=== PATIENT | female | born 1995 | race Hispanic/Latino ===

== ENCOUNTER 2018-03-21 17:13 | Inpatient (IN) | payer MEDICAID, OTHER ==
[2018-03-21 17:21] VITALS: BMI 32.1
[2018-03-21] MEDS ORDERED: Sodium Chloride 0.9% 1,000 ML IV STA (18:05)
--- NOTE | 2018-03-21 18:13 | ED PDOC ---
Arrival/HPI - General Chief Complaint: Back Pain Time Seen by Provider: 03/21/18 17:38 Historian: Patient - History of Present Illness Narrative History of Present Illness (Text): 03/21/18 18:11 This 22 yo female who denies pmh, presents to this ED c/o right flank and lower back pain x 2 days. Patient stated she was seen at [facility] ED 2 days ago[address] Patient [address] CT scan, labs, and UA were normal. Patient stated she continued with pain, and associated with fever. Patient admits dysuria, but she denies vaginal discharge. Past Medical History - Provider Review Nursing Documentation Reviewed: Yes - Infectious Disease Hx of Infectious Diseases: None - Psychiatric Hx Depression: No Hx Emotional Abuse: No Hx Physical Abuse: No Hx Substance Use: No - Surgical History Hx Tonsillectomy: Yes Other/Comment: breast reduction - Anesthesia Hx Anesthesia: Yes Hx Anesthesia Reactions: No Hx Malignant Hyperthermia: No - Suicidal Assessment Feels Threatened In Home Enviroment: No Family/Social History - Physician Review Nursing Documentation Reviewed: Yes Family/Social History: Other (noncontributory) Smoking Status: Never Smoked Hx Alcohol Use: Yes Frequency of alcohol use: Socially Hx Substance Use: No Hx Substance Use Treatment: No Allergies/Home Meds Allergies/Adverse Reactions: Allergies No Known Allergies Allergy (Verified 04/03/12 15:57) Home Medications: Home Meds Medication Instructions Recorded Confirmed No Known Home Med 04/03/12 03/21/18 Review of Systems - Review of Systems Constitutional: Normal. absent: Fatigue, Weight Change, Fevers Eyes: Normal ENT: Normal Respiratory: Normal Cardiovascular: Normal Gastrointestinal: Abdominal Pain, Nausea. absent: Constipation, Diarrhea Genitourinary Female: Dysuria. absent: Frequency, Hematuria Musculoskeletal: Normal Skin: Normal Neurological: Normal Endocrine: Normal Hemo/Lymphatic: Normal Psychiatric: Normal Physical Exam Vital Signs Temp Pulse Resp BP Pulse Ox 03/21/18 18:30 105 H 18 110/77 99 03/21/18 17:22 99.8 F H 111 H 18 129/82 98 Temperature: Febrile Blood Pressure: Normal Pulse: Tachycardic Respiratory Rate: Normal Appearance: Positive for: Well-Appearing, Non-Toxic, Comfortable Pain Distress: None Mental Status: Positive for: Alert and Oriented X 3 - Systems Exam Head: Present: Atraumatic, Normocephalic Pupils: Present: PERRL Extroacular Muscles: Present: EOMI Conjunctiva: Present: Normal Mouth: Present: Moist Mucous Membranes Neck: Present: Normal Range of Motion Respiratory/Chest: Present: Clear to Auscultation, Good Air Exchange. No: Respiratory Distress, Accessory Muscle Use Cardiovascular: Present: Regular Rate and Rhythm, Normal S1, S2. No: Murmurs Abdomen: Present: Tenderness. No: Distention, Peritoneal Signs, Rebound, Guarding Back: Present: Normal Inspection, CVA Tenderness (mild right sided). No: Paraspinal Tenderness, Pain with Leg Raise Upper Extremity: Present: Normal Inspection, Normal ROM. No: Cyanosis, Edema Lower Extremity: Present: Normal Inspection, Normal ROM. No: Edema Neurological: Present: GCS=15, CN II-XII Intact, Speech Normal, Motor Func Grossly Intact, Normal Sensory Function, Normal Cerebellar Funct, Gait Normal Skin: Present: Warm, Dry, Normal Color. No: Rashes Psychiatric: Present: Alert, Oriented x 3, Normal Insight, Normal Concentration Medical Decision Making ED Course and Treatment: 03/21/18 23:24 I recommended patient to be admitted for observation. Patient agreed, and she requested to have Dr. Wall to take care of her admission. Re-evaluation Time: 23:25 Reassessment Condition: Re-examined, Improving,but remains with symptoms - Lab Interpretations Lab Results: 03/21/18 18:19 03/21/18 18:19 Lab Results 03/21/18 19:30: Urine Color Straw, Urine Appearance Slight-cloudy, Urine pH 6.0 , Ur Specific Ione 1.010, Urine Protein 30 H, Urine Glucose (UA) Negative, Urine Ketones Negative, Urine Blood Large H, Urine Nitrate Negative, Urine Bilirubin Negative, Urine Urobilinogen 0.2, Ur Leukocyte Esterase Large H, Urine RBC 25 - 30, Urine WBC 10 - 15, Ur Epithelial Cells Many, Urine Bacteria Trace, Urine HCG, Qual Negative 03/21/18 18:19: Sodium 136, Potassium 3.7, Chloride 101, Carbon Dioxide 24, Anion Gap 15, BUN 13, Creatinine 1.1, Est GFR ( Amer) > 60, Est GFR (Non- Af Amer) > 60, Random Glucose 105, Calcium 9.2, Total Bilirubin 0.8, AST 29, ALT 21, Alkaline Phosphatase 80, Total Protein 7.7, Albumin 4.1, Globulin 3.7, Albumin/Globulin Ratio 1.1 03/21/18 18:19: WBC 15.5 H, RBC 4.14, Hgb 11.0 L, Hct 34.5 L, MCV 83.3, MCH 26.6 , MCHC 31.9, RDW 15.1 H, Plt Count 251, MPV 8.3, Gran % 68.2 H, Lymph % (Auto) 16.9 L, Stearns % (Auto) 14.7 H, Eos % (Auto) 0.1 L, Baso % (Auto) 0.1, Gran # 10.55 H, Lymph # (Auto) 2.6, Stearns # (Auto) 2.3 H, Eos # (Auto) 0.0, Baso # (Auto ) 0.01 I have reviewed the lab results: Yes Interpretation: Abnormal lab values - RAD Interpretation Radiology Orders: 03/21/18 18:07 CHEST PORTABLE [RAD] Stat 03/21/18 18:43 ABD & PELVIS IV CONTRAST ONLY [CT] Stat - Medication Orders Current Medication Orders: Discontinued Medications Acetaminophen (Tylenol 325mg Tab) 975 mg PO STAT STA Stop: 03/21/18 18:11 Last Admin: 03/21/18 18:48 Dose: 975 mg MAR Pain/Vitals Document 03/21/18 18:48 CARLY (Rec: 03/21/18 18:48 CARLY JOEL-PC) Pain Reassessment Is This A Pain ReAssessment? No Sleep Is patient sleeping during reassessment? No Presence of Pain Presence of Pain Yes Sodium Chloride (Sodium Chloride 0.9%) 1,000 mls @ 999 mls/hr IV .Q1H1M STA Stop: 03/21/18 19:05 Last Admin: 03/21/18 18:47 Dose: 999 mls/hr eMAR Start Stop Document 03/21/18 18:47 CARLY (Rec: 03/21/18 18:48 CARLY JOEL-PC) Intravenous Solution Start Date 03/21/18 Start Time 18:30 End Date 03/21/18 End time 19:30 Total Infusion Time 60 Ceftriaxone Sodium (Rocephin 1 Gram Ivpb) 1 gm in 100 mls @ 200 mls/hr IVPB STAT STA PRN Reason: Protocol Stop: 03/21/18 19:20 Last Admin: 03/21/18 19:36 Dose: 200 mls/hr eMAR Start Stop Document 03/21/18 19:36 AD (Rec: 03/21/18 19:37 AD [id number]) Intravenous Solution Start Date 03/21/18 Start Time 19:37 Ondansetron HCl (Zofran Inj) 4 mg IVP STAT STA Stop: 03/21/18 18:48 Last Admin: 03/21/18 18:50 Dose: 4 mg IVP Administration Document 03/21/18 18:50 CARLY (Rec: 03/21/18 18:50 CARLY [id number]) Charges for Administration # of IVP Administrations 1 Disposition/Present on Arrival - Present on Arrival Any Indicators Present on Arrival: No History of DVT/PE: No History of Uncontrolled Diabetes: No Urinary Catheter: No History of Decub. Ulcer: No History Surgical Site Infection Following: None - Disposition Have Diagnosis and Disposition been Completed?: Yes Diagnosis: Pyelonephritis Disposition: HOSPITALIZED Disposition Time: 23:26 Patient Plan: Admission Condition: STABLE Referrals: Kerri Sparks DO [Primary Care Provider] - Follow up with primary Forms: [employer] (Azeri)
[2018-03-21 18:36] LABS: BASO # 0.01 K/mm3 (0.0-2.0); BASO % 0.1 % (0.0-3.0); EOS % 0.1 % (1.5-5.0); GRAN # 10.55 (1.4-6.5); GRAN % 68.2 % (50.0-68.0); LYMPH # 2.6 (1.2-3.4); LYMPH % 16.9 % (22.0-35.0); MEAN CELL VOLUME 83.3 fl (80.0-105.0); MEAN CORPUSCULAR HEMOGLOBIN 26.6 pg (25.0-35.0); MEAN CORPUSCULAR HGB CONC 31.9 g/dl (31.0-37.0); MEAN PLATELET VOLUME 8.3 fl (7.0-11.0); MONO # 2.3 (0.1-0.6); MONO % 14.7 % (1.0-6.0); RBC 4.14 10^6/uL (3.5-6.1); RED CELL DISTRIBUTION WIDTH 15.1 % (11.5-14.5); WHITE BLOOD COUNT 15.5 10^3/ul (4.5-11.0)
[2018-03-21 18:51] LABS: ALB/GLOB RATIO 1.1 (1.1-1.8); ALBUMIN 4.1 g/dL (3.0-4.8); ALT/SGPT 21 U/L (7-56); AST/SGOT 29 U/L (14-36); BLOOD UREA NITROGEN 13 mg/dL (7-21); CALCIUM 9.2 mg/dL (8.4-10.5); GFR AFRICAN-AMERICAN > 60; GFR NON-AFRICAN AMERICAN > 60
[2018-03-21] MEDS ORDERED: cefTRIAXone 1 gm 1 GM/100 ML BAG IVPB STA (18:51)
[2018-03-21] MEDS ORDERED: Iohexol 350 MG/100 ML VIAL ONE (20:29)
[2018-03-21 23:11] LABS: URINE APPEARANCE SLIGHT-CLOUDY (CLEAR); URINE BILIRUBIN NEGATIVE (NEGATIVE); URINE COLOR STRAW (YELLOW); URINE GLUCOSE (UA) NEGATIVE (NEGATIVE)
[2018-03-21 23:12] LABS: HCG,QUALITATIVE URINE NEGATIVE (NEGATIVE); URINE BLOOD LARGE (NEGATIVE); URINE LEUKOCYTE ESTERASE LARGE Leu/uL (NEGATIVE); URINE PROTEIN 30 mg/dL (<30 mg/dL); URINE UROBILINOGEN 0.2 E.U./dL (<1 E.U./dL)
[2018-03-21 23:13] LABS: URINE BACTERIA TRACE (NEG); URINE EPITHELIAL CELLS MANY /hpf (0-5); URINE RBC 25 - 30 /hpf (0-2)
[2018-03-21] MEDS: Sodium Chloride 0.9% 1,000 ML IV SCH (23:45)
[2018-03-22] MEDS ORDERED: TraMADol/Apap 37.5/325 mg Tab PO STA (01:36)
--- NOTE | 2018-03-22 09:15 | RAD ---
HISTORY: cough COMPARISON: No prior. FINDINGS: LUNGS: No active pulmonary disease. PLEURA: No significant pleural effusion identified, no pneumothorax apparent. CARDIOVASCULAR: Normal. OSSEOUS STRUCTURES: No significant abnormalities. VISUALIZED UPPER ABDOMEN: Normal. OTHER FINDINGS: None. IMPRESSION: No active disease.
[2018-03-22] MEDS: Sodium Chloride 0.9% 1,000 ML IV SCH (09:22)
[2018-03-22] MEDS: cefTRIAXone 1 gm 1 GM/100 ML BAG IVPB SCH (09:27)
[2018-03-22] MEDS: HYDROmorphone 0.5 mg/0.5 ml ISec IVP PRN (09:41)
--- NOTE | 2018-03-22 13:08 | CT ---
PROCEDURE: CT Abdomen and Pelvis with contrast HISTORY: Right flank pain r/o Pyelo COMPARISON: None. TECHNIQUE: Contrast dose: 100 cc of Omni 350 Radiation dose: Total exam DLP = 489 mGy-cm. This CT exam was performed using one or more of the following dose reduction techniques: Automated exposure control, adjustment of the mA and/or kV according to patient size, and/or use of iterative reconstruction technique. FINDINGS: LOWER THORAX: Unremarkable. LIVER: Unremarkable. No gross lesion or ductal dilatation. GALLBLADDER AND BILE DUCTS: Unremarkable. PANCREAS: Unremarkable. No gross lesion or ductal dilatation. SPLEEN: Unremarkable. ADRENALS: Unremarkable. No mass. KIDNEYS AND URETERS: There is patchy edema within the right kidney as well as minimal perinephric stranding consistent with pyelonephritis. There is a 7 mm nonobstructing stone in the lower pole of the right kidney. The left kidney is unremarkable VASCULATURE: Unremarkable. No aortic aneurysm. BOWEL: Unremarkable. No obstruction. No gross mural thickening. APPENDIX: Normal appendix. PERITONEUM: Unremarkable. No free fluid. No free air. LYMPH NODES: Unremarkable. No enlarged lymph nodes. BLADDER: Unremarkable. REPRODUCTIVE: Bilateral ovarian cysts are seen. There is a moderate amount of fluid in the cul-de-sac consistent with recent cyst rupture BONES: No acute fracture. OTHER FINDINGS: None. IMPRESSION: There is patchy edema within the right kidney as well as minimal perinephric stranding consistent with pyelonephritis. There is a 7 mm nonobstructing stone in the lower pole of the right kidney. Bilateral ovarian cysts are seen. There is a moderate amount of fluid in the cul-de-sac consistent with recent cyst rupture
--- NOTE | 2018-03-22 17:38 | CP.PCM.CON ---
History of Present Illness - History of Present Illness History of Present Illness: Infectious Disease Consultation: March 22, 2018 22 yo female with no previous PMHx presenting with 2 day history of right flank pain and lower back pain. The patient was seen in [facility] ED 2 at that time. The patient complains of dysuria, fever, and right flank pain. A CT scan done shows signs of pyelonephritis. Patient was started on Ceftriaxone for antibiotic treatment. PMHx: none given PSHx: none given Allergies: NKDA Social Hx: No tobacco or illicit drug use. Social EtOH use. Active Medications Acetaminophen (Tylenol 325mg Tab) 650 mg PO Q4H PRN PRN Reason: Fever >100.5 F Last Admin: 03/22/18 03:30 Dose: 650 mg Famotidine (Pepcid) 40 mg PO HS RAMEZ Hydromorphone HCl (Dilaudid) 0.5 mg IVP Q4H PRN PRN Reason: Pain, Mild (1-3) Last Admin: 03/22/18 09:41 Dose: 0.5 mg Sodium Chloride (Sodium Chloride 0.9%) 1,000 mls @ 100 mls/hr IV .Q10H RAMEZ Last Admin: 03/22/18 09:22 Dose: 100 mls/hr Ceftriaxone Sodium (Rocephin 1 Gram Ivpb) 1 gm in 100 mls @ 100 mls/hr IVPB DAILY RAMEZ PRN Reason: Protocol Last Admin: 03/22/18 09:27 Dose: 100 mls/hr Ondansetron HCl (Zofran Inj) 4 mg IVP Q4H PRN PRN Reason: Nausea/Vomiting Family Hx: none given ROS: fevers, chills, abdominal pain, right flank pain, weakness No chest pain, melena, hematuria, hematemesis, hematochezia, depression, anxiety , diarrhea, vision loss, hearing loss, dizziness, vomiting, nausea, loss of consciousness. Past Patient History - Infectious Disease Hx of Infectious Diseases: None - Past Social History Smoking Status: Never Smoked - MUSCULOSKELETAL/RHEUMATOLOGICAL Hx Falls: No - PSYCHIATRIC Hx Depression: No Hx Emotional Abuse: No Hx Physical Abuse: No Hx Substance Use: No - SURGICAL HISTORY Other/Comment: Breast reduction. Tonsilectomy - ANESTHESIA Hx Anesthesia: Yes Hx Anesthesia Reactions: No Hx Malignant Hyperthermia: No Meds Allergies/Adverse Reactions: Allergies Allergy/AdvReac Type Severity Reaction Status Date / Time No Known Allergies Allergy Verified 04/03/12 15:57 - Medications Medications: Current Medications Acetaminophen (Tylenol 325mg Tab) 650 mg PO Q4H PRN PRN Reason: Fever >100.5 F Last Admin: 03/22/18 03:30 Dose: 650 mg Famotidine (Pepcid) 40 mg PO HS RAMEZ Hydromorphone HCl (Dilaudid) 0.5 mg IVP Q4H PRN PRN Reason: Pain, Mild (1-3) Last Admin: 03/22/18 09:41 Dose: 0.5 mg Sodium Chloride (Sodium Chloride 0.9%) 1,000 mls @ 100 mls/hr IV .Q10H RAMEZ Last Admin: 03/22/18 09:22 Dose: 100 mls/hr Ceftriaxone Sodium (Rocephin 1 Gram Ivpb) 1 gm in 100 mls @ 100 mls/hr IVPB DAILY RAMEZ PRN Reason: Protocol Last Admin: 03/22/18 09:27 Dose: 100 mls/hr Ondansetron HCl (Zofran Inj) 4 mg IVP Q4H PRN PRN Reason: Nausea/Vomiting Physical Exam - Constitutional Appears: Non-toxic, No Acute Distress - Head Exam Head Exam: ATRAUMATIC, NORMOCEPHALIC - Eye Exam Eye Exam: EOMI, PERRL Pupil Exam: NORMAL ACCOMODATION, PERRL - ENT Exam ENT Exam: Mucous Membranes Moist, Normal External Ear Exam, TM's Normal Bilaterally - Neck Exam Neck exam: Positive for: Full Rom, Normal Inspection - Respiratory Exam Respiratory Exam: Clear to Auscultation Bilateral, NORMAL BREATHING PATTERN. absent: Rales, Rhonchi, Wheezes - Cardiovascular Exam Cardiovascular Exam: REGULAR RHYTHM, RRR, +S1, +S2 - GI/Abdominal Exam GI & Abdominal Exam: Normal Bowel Sounds, Soft, Tenderness. absent: Distended Additional comments: right flank pain and tenderness. - Extremities Exam Extremities exam: Positive for: full ROM, normal inspection - Neurological Exam Neurological exam: Alert, CN II-XII Intact, Oriented x3 - Psychiatric Exam Psychiatric exam: Normal Affect, Normal Mood - Skin Skin Exam: Intact, Normal Color Results - Vital Signs Recent Vital Signs: Last Vital Signs Temp 97.9 F 03/22/18 14:00 Pulse 95 H 04/25/18 14:00 Resp 20 03/22/18 14:00 BP 128/86 03/22/18 14:00 Pulse Ox 98 03/22/18 14:00 - Labs Result Diagrams: 03/21/18 18:19 03/21/18 18:19 Assessment & Plan - Assessment and Plan (Free Text) Assessment: 22 yo female with 2 day history of right flank and abdominal pain with fevers at home. CT shows signs of right sided pyelonephritis. Started on Rocephin which is a good starting point. Cultures taken for analysis. Results pending. Supportive care. No other medical history at this time. Thank you for allowing me to participate in the care of the patient, we will follow with you.
--- NOTE | 2018-03-22 22:16 | CP.PCM.PN ---
Subjective - Date & Time of Evaluation Date of Evaluation: 03/22/18 Time of Evaluation: 22:13 - Subjective Subjective: S:Patient was seen at bedside. She had requested a sleeping pill stating that she was not able to sleep night before. Has no other complaints now. Pertinent medical record was reviewed. O: Last Vital Signs 3 Temp 97.9 F 03/22/18 14:00 Pulse 95 H 03/22/18 14:00 Resp 20 03/22/18 14:00 BP 128/86 03/22/18 14:00 Pulse Ox 98 03/22/18 14:00 Awake, alert, not in distress. Obese person. LUNGS: Normal breathing pattern. NEURO: Speech normal. A:Adjustment Insomnia/ P:Benadryl 25 mg PO X 1. Objective - Vital Signs/Intake and Output Vital Signs (last 24 hours): Temp Pulse Resp BP Pulse Ox 97.9 F 95 H 20 128/86 98 03/22/18 14:00 03/22/18 14:00 03/22/18 14:00 03/22/18 14:00 03/22/18 14:00 Intake and Output: 03/22/18 03/23/18 18:59 06:59 Intake Total 1640 Balance 1640 - Medications Medications: Current Medications Acetaminophen (Tylenol 325mg Tab) 650 mg PO Q4H PRN PRN Reason: Other Last Admin: 03/22/18 18:25 Dose: 650 mg Diphenhydramine HCl (Benadryl) 25 mg PO STAT STA Stop: 03/22/18 22:13 Famotidine (Pepcid) 40 mg PO HS RAMEZ Hydromorphone HCl (Dilaudid) 0.5 mg IVP Q4H PRN PRN Reason: Pain, Mild (1-3) Last Admin: 03/22/18 09:41 Dose: 0.5 mg Sodium Chloride (Sodium Chloride 0.9%) 1,000 mls @ 100 mls/hr IV .Q10H RAMEZ Last Admin: 03/22/18 09:22 Dose: 100 mls/hr Ceftriaxone Sodium (Rocephin 1 Gram Ivpb) 1 gm in 100 mls @ 100 mls/hr IVPB DAILY RAMEZ PRN Reason: Protocol Last Admin: 03/22/18 09:27 Dose: 100 mls/hr Ondansetron HCl (Zofran Inj) 4 mg IVP Q4H PRN PRN Reason: Nausea/Vomiting
[2018-03-23 09:57] LABS: IRON 37 ug/dL (45-180)
[2018-03-23 10:06] LABS: % IRON SATURATION 12 % (20-55); TOTAL IRON BINDING CAPACITY 300 ug/dL (265-497)
[2018-03-23] MEDS: Sodium Chloride 0.9% 1,000 ML IV SCH (10:52)
[2018-03-23] MEDS: Enoxaparin 40 mg Syringe SC SCH (10:59)
[2018-03-23] MEDS: cefTRIAXone 1 gm 1 GM/100 ML BAG IVPB SCH (11:00)
[2018-03-23] MEDS: HYDROmorphone 0.5 mg/0.5 ml ISec IVP PRN ×2 (11:49→22:28)
[2018-03-23 18:59] LABS: FOLATE 13.8 ng/mL
--- NOTE | 2018-03-23 20:05 | HP ---
DATE OF EXAM: 03/22/2018 CHIEF COMPLAINT: Back pain, right flank pain. HISTORY OF PRESENT ILLNESS: Ms. Sami Santos is a 22-year-old female with past medical history of kidney stones at childhood, came to the Emergency Department complaining of right flank pain and lower back pain from 2 days. Patient stated that she was seen in [facility] ED 2 days ago. The patient stated the CAT scan and labs was normal. Patient stated that she continued with pain and associated with fever. Patient has dysuria and she denies any vaginal discharge. No feeling of headache and dizziness. Also, we admitted the patient and called Urology and Infectious Disease consult, started IV antibiotics, Rocephin. Patient was seen and examined at the bedside on 03/22/2018. PAST MEDICAL HISTORY: Kidney stones in the childhood, tonsillectomy, breast reduction. FAMILY HISTORY: Father and mother noncontributory. HABITS: Never smoked. Alcohol, yes, socially. Substance abuse. ALLERGIES: PATIENT IS NOT ALLERGIC TO ANY MEDICATIONS. HOME MEDICATIONS: Denied. REVIEW OF SYSTEMS: Patient was seen and examined at the bedside. Boyfriend was standing on the bedside also. Still having right flank pain. No fatigue, weight change, but having feverous feeling, having nauseous. No constipation or diarrhea, complaining about dysuria, but no hematuria, sometimes feeling headache, dizziness also. PHYSICAL EXAMINATION: VITAL SIGNS: Temperature 99.8, pulse 111, respiratory rate 18, blood pressure 129/80, pulse oximetry 98. HEENT: Head: Normocephalic, atraumatic. Eyes: PERRLA. Extraocular movements intact. Conjunctivae clear. Nose: Patent. Mucous membrane moist. NECK: Supple, no carotid bruit. No JVD or thyromegaly. CHEST: Bilaterally symmetrical. HEART: S1 and S2 positive. LUNGS: Clear to auscultation. ABDOMEN: Soft, bowel sounds positive. No organomegaly. EXTREMITIES: No edema, no cyanosis. NEUROLOGICAL: Patient is awake, alert. Moving all 4 extremities. No focal deficits. LABORATORY DATA: White blood cells 15.5, hemoglobin 11, hematocrit 34.5, and platelets 251. Sodium 138, potassium 3.7, BUN 13, creatinine 1.1, glucose 105. ASSESSMENT AND PLAN: Ms. Sami Santos is a 22-year-old lady with leukocytosis, anemia, history of nephrolithiasis and history of tonsillectomy, was seen at [facility] 2 days ago, came with right flank pain, came to know patient has pyelonephritis, antibiotics was restarted, IV, and Urology consult called. Patient was seen by Dr. Brady. For insomnia, Ambien was given. CAT scan of the abdomen and pelvis done. There is a patchy edema within the right kidney as well as minimal perinephric stranding consistent with pyelonephritis. There is a 7-mm non-obstructing stone in the lower pole of the right kidney. Bladder and ovarian cyst are seen. There is a moderate amount of fluid in the cul-de-sac with recent cystic rupture. PLAN: Continue antibiotics, waiting for urologist's input. Appreciating Dr. Bob's input. Continue Dilaudid for pain. Pepcid for GI prophylaxis. Patient is getting NS, Tylenol, and tramadol. Zofran for nauseousness. We will start Lovenox for DVT prophylaxis. Repeat labs. We will follow up. Shannan Wall MD [facility]
--- NOTE | 2018-03-23 22:28 | CP.PCM.PN ---
Subjective - Date & Time of Evaluation Date of Evaluation: 03/23/18 Time of Evaluation: 22:00 - Subjective Subjective: Infectious Disease Follow Up: March 23, 2018 22 yo female with no previous PMHx presenting with 2 day history of right flank pain and lower back pain. The patient was seen in [facility] ED 2 at that time. The patient complains of dysuria, fever, and right flank pain. A CT scan done shows signs of pyelonephritis. Patient was started on Ceftriaxone for antibiotic treatment. Urine cultures showing gram negative rods. Awaiting full identification and sensitivity. Objective - Vital Signs/Intake and Output Vital Signs (last 24 hours): Temp Pulse Resp BP Pulse Ox 98.1 F 54 L 18 115/74 100 03/23/18 14:00 03/23/18 14:00 03/23/18 14:00 03/23/18 14:00 03/23/18 14:00 Intake and Output: 03/23/18 03/24/18 18:59 06:59 Intake Total 760 780 Balance 760 780 - Medications Medications: Current Medications Acetaminophen (Tylenol 325mg Tab) 650 mg PO Q4H PRN PRN Reason: Other Last Admin: 03/23/18 21:38 Dose: 650 mg Enoxaparin Sodium (Lovenox) 40 mg SC DAILY RAMEZ PRN Reason: Protocol Last Admin: 03/23/18 10:59 Dose: 40 mg Famotidine (Pepcid) 40 mg PO HS [facility] Last Admin: 03/23/18 21:39 Dose: 40 mg Hydromorphone HCl (Dilaudid) 0.5 mg IVP Q4H PRN PRN Reason: Pain, Mild (1-3) Last Admin: 03/23/18 11:49 Dose: 0.5 mg Sodium Chloride (Sodium Chloride 0.9%) 1,000 mls @ 100 mls/hr IV .Q10H [facility] Last Admin: 03/23/18 10:52 Dose: 100 mls/hr Ceftriaxone Sodium (Rocephin 1 Gram Ivpb) 1 gm in 100 mls @ 100 mls/hr IVPB DAILY RAMEZ PRN Reason: Protocol Last Admin: 03/23/18 11:00 Dose: 100 mls/hr Ondansetron HCl (Zofran Inj) 4 mg IVP Q4H PRN PRN Reason: Nausea/Vomiting - Constitutional Appears: Non-toxic, No Acute Distress - Head Exam Head Exam: ATRAUMATIC, NORMOCEPHALIC - Eye Exam Eye Exam: EOMI, PERRL Pupil Exam: NORMAL ACCOMODATION, PERRL - ENT Exam ENT Exam: Mucous Membranes Moist, Normal External Ear Exam, TM's Normal Bilaterally - Neck Exam Neck Exam: Full ROM, Normal Inspection - Respiratory Exam Respiratory Exam: Clear to Ausculation Bilateral, NORMAL BREATHING PATTERN. absent: Rales, Rhonchi, Wheezes - Cardiovascular Exam Cardiovascular Exam: REGULAR RHYTHM, RRR, +S1, +S2 - GI/Abdominal Exam GI & Abdominal Exam: Soft, Tenderness, Normal Bowel Sounds. absent: Distended Additional comments: right flank pain and tenderness. - Extremities Exam Extremities Exam: Full ROM, Normal Inspection - Neurological Exam Neurological Exam: Alert, Awake, CN II-XII Intact, Oriented x3 - Psychiatric Exam Psychiatric exam: Normal Affect, Normal Mood - Skin Skin Exam: Intact, Normal Color Assessment and Plan - Assessment and Plan (Free Text) Assessment: 22 yo female with 2 day history of right flank and abdominal pain with fevers at home. CT shows signs of right sided pyelonephritis. Started on Rocephin which is a good starting point. Cultures taken for analysis. Results pending. Supportive care. UTI. Cultures showing gram negative rods so far. Afebrile today. Right flank pain improving. No other medical history at this time. Thank you for allowing me to participate in the care of the patient, we will follow with you.
--- NOTE | 2018-03-24 05:21 | PN ---
DATE: 03/23/2018 The patient is a 22-year-old female. SUBJECTIVE: The patient was seen and examined at the bedside, on . Boyfriend was on the bedside also. The patient is still complaining of dysuria, but getting better. No fever. No chills. Right flank pain is getting better. CAT scan shows signs of pyelonephritis. No nausea or vomiting. No headache. No dizziness. PHYSICAL EXAMINATION: VITAL SIGNS: Temperature 98.1, pulse 54, respiratory rate 18, blood pressure 115/74, pulse oximetry 100%. HEENT: Head, normocephalic and atraumatic. Eyes, PERRLA. Extraocular movements intact. Conjunctivae clear. Nose: Patent. NECK: Supple. No carotid bruit. No JVD or thyromegaly. CHEST: Bilaterally symmetrical. HEART: S1, S2 positive. LUNGS: Clear to auscultation. ABDOMEN: Soft, bowel sounds present. No organomegaly. EXTREMITIES: No edema, no cyanosis. NEUROLOGICAL: Patient is awake, alert. Moving all 4 extremities. No focal deficits. MEDICATIONS: Tylenol, Lovenox, Pepcid, Dilaudid, NS, Rocephin and Zofran. LABORATORY DATA: Hemoglobin A1c 5.3, iron 37, saturation 12. We do not have recent labs today, but I reviewed old labs. ASSESSMENT AND PLAN: Ms. Sami Santos is a 22-year-old lady with leukocytosis, iron deficiency anemia, proteinuria, hematuria and urinary tract infection, came with right flank pain, dysuria; seen by Dr. Bob, Infectious Disease. CT shows signs of right sided pyelonephritis. We will start Rocephin, which is a good starting point medication. Cultures are taken for analysis, results are pending. Supportive care. Now culture is showing negative rods. So far, afebrile. Right flank pain improved. No other medical history at this time. Waiting for urologist's input. Appreciated ID input. Gastrointestinal and deep vein thrombosis prophylaxis. Repeat labs. We will follow up. Shannan Wall MD
[2018-03-24 06:49] LABS: HEMOGLOBIN 10.1 g/dL (12.0-16.0); MEAN CELL VOLUME 83.1 fl (80.0-105.0); MEAN CORPUSCULAR HEMOGLOBIN 25.9 pg (25.0-35.0); MEAN CORPUSCULAR HGB CONC 31.2 g/dl (31.0-37.0); MEAN PLATELET VOLUME 8.2 fl (7.0-11.0); RBC 3.9 10^6/uL (3.5-6.1); RED CELL DISTRIBUTION WIDTH 14.6 % (11.5-14.5); WHITE BLOOD COUNT 7.6 10^3/ul (4.5-11.0)
--- NOTE | 2018-03-24 07:06 | CP.PCM.PN ---
Subjective - Date & Time of Evaluation Date of Evaluation: 03/24/18 Time of Evaluation: 07:06 - Subjective Subjective: # 22 angiocath was inserted in left forearm. Dx:Poor venous access. Objective - Vital Signs/Intake and Output Vital Signs (last 24 hours): Temp Pulse Resp BP Pulse Ox 98.4 F 98 H 20 125/84 99 03/23/18 23:17 03/23/18 23:17 03/23/18 23:17 03/23/18 23:17 03/23/18 23:17 Intake and Output: 03/24/18 03/24/18 06:59 18:59 Intake Total 1020 Balance 1020 - Medications Medications: Current Medications Acetaminophen (Tylenol 325mg Tab) 650 mg PO Q4H PRN PRN Reason: Other Last Admin: 03/23/18 21:38 Dose: 650 mg Enoxaparin Sodium (Lovenox) 40 mg SC DAILY [facility] PRN Reason: Protocol Last Admin: 03/23/18 10:59 Dose: 40 mg Famotidine (Pepcid) 40 mg PO HS [facility] Last Admin: 03/23/18 21:39 Dose: 40 mg Hydromorphone HCl (Dilaudid) 0.5 mg IVP Q4H PRN PRN Reason: Pain, Mild (1-3) Last Admin: 03/23/18 22:28 Dose: 0.5 mg Sodium Chloride (Sodium Chloride 0.9%) 1,000 mls @ 100 mls/hr IV .Q10H [facility] Last Admin: 03/23/18 10:52 Dose: 100 mls/hr Ceftriaxone Sodium (Rocephin 1 Gram Ivpb) 1 gm in 100 mls @ 100 mls/hr IVPB DAILY [facility] PRN Reason: Protocol Last Admin: 03/23/18 11:00 Dose: 100 mls/hr Ondansetron HCl (Zofran Inj) 4 mg IVP Q4H PRN PRN Reason: Nausea/Vomiting
[2018-03-24 07:21] LABS: BLOOD UREA NITROGEN 7 mg/dL (7-21); CALCIUM 8.8 mg/dL (8.4-10.5); GFR AFRICAN-AMERICAN > 60; GFR NON-AFRICAN AMERICAN > 60
--- NOTE | 2018-03-24 08:25 | CON ---
DATE: 03/23/2018 CHIEF COMPLAINT Right flank pain. HISTORY OF PRESENT ILLNESS: This is a 22-year-old female who was seen in [facility] ED 3 days ago with complaint of right flank pain. The patient reported that she had a CT scan done with no significant findings. She was told she had a urinary infection, was told her urine was normal. She was discharged home. She continued to have worsening pain and reportedly had a fever. She had some dysuria and increased urinary frequency. As her pain worsened, she presented to [facility] where she was admitted for possible pyelonephritis. The patient has been started on intravenous antibiotics and pain medication. Her condition has been improving. She has been afebrile since admission. She does have slightly increased pulse rate of 95, temperature 97.9, blood pressure 128/86, respirations 20. The patient had a repeat CT scan done here which showed there was patchy edema in the right kidney with minimal perinephric stranding consistent with pyelonephritis. There is a 7 mm nonobstructing stone in the lower pole of the right kidney, bilateral ovarian cysts were seen with a moderate amount of fluid in the cul-de-sac consistent with a recent cyst rupture. LABORATORY DATA: Showed a white count of 15.5 yesterday. Creatinine 1.1 with a GFR of greater than 60. Urine culture positive for gram-negative rods. Blood cultures preliminarily are negative after 24 hours. IMPRESSION AND PLAN: Appears to be pyelonephritis with a positive urine culture, right flank pain and CT findings. The patient has been afebrile. She does have an elevated WBC count yesterday. Urologically, no surgical intervention is required for treatment of pyelonephritis. We will need to monitor her to make sure she does not develop a renal abscess given the report of some renal edema. Plan will be to continue IV antibiotics and fluids as per Infectious Disease recommendations. Further plan would be to obtain a [employer] consultation given the CT findings of a ruptured ovarian cyst, which can also be causing part of her pain and elevated white count. The patient does have a reportedly 7 mm nonobstructing stone. This can be followed electively as an outpatient once her acute condition has improved. I would plan on a repeat blood work tomorrow to make sure the patient is responding to antibiotic therapy. Osmin Coley MD
[2018-03-24 09:07] VITALS: BP 145/90; PULSE 82; RESP 18; TEMP 97.8; O2SAT 100
[2018-03-24] MEDS: cefTRIAXone 1 gm 1 GM/100 ML BAG IVPB SCH (10:55)
[2018-03-24] MEDS: Enoxaparin 40 mg Syringe SC SCH (10:56)
[2018-03-24 11:43] LABS: URINE BILIRUBIN NEGATIVE (NEGATIVE); URINE BLOOD NEGATIVE (NEGATIVE); URINE GLUCOSE (UA) NEGATIVE (NEGATIVE); URINE LEUKOCYTE ESTERASE NEGATIVE Leu/uL (NEGATIVE); URINE PROTEIN NEGATIVE mg/dL (<30 mg/dL); URINE UROBILINOGEN 0.2 E.U./dL (<1 E.U./dL)
[2018-03-24 11:45] LABS: URINE APPEARANCE CLEAR (CLEAR); URINE COLOR YELLOW (YELLOW)
--- NOTE | 2018-03-24 13:12 | CP.PCM.PN ---
Subjective - Date & Time of Evaluation Date of Evaluation: 03/24/18 Time of Evaluation: 12:30 - Subjective Subjective: Infectious Disease Follow Up: March 24, 2018 22 yo female with no previous PMHx presenting with 2 day history of right flank pain and lower back pain. The patient was seen in [facility] ED at that time. The patient complains of dysuria, fever, and right flank pain. A CT scan done shows signs of pyelonephritis. Patient was started on Ceftriaxone for antibiotic treatment. Urine cultures showing gram negative rods. Awaiting full identification and sensitivity. Identification showing E. Coli growth highly sensitive to most antibiotics. Objective - Vital Signs/Intake and Output Vital Signs (last 24 hours): Temp Pulse Resp BP Pulse Ox 97.8 F 82 18 145/90 100 03/24/18 06:00 03/24/18 06:00 03/24/18 06:00 03/24/18 06:00 03/24/18 06:00 Intake and Output: 03/24/18 03/24/18 06:59 18:59 Intake Total 1020 Balance 1020 - Medications Medications: Current Medications Acetaminophen (Tylenol 325mg Tab) 650 mg PO Q4H PRN PRN Reason: Other Last Admin: 03/23/18 21:38 Dose: 650 mg Enoxaparin Sodium (Lovenox) 40 mg SC DAILY [facility] PRN Reason: Protocol Last Admin: 03/24/18 10:56 Dose: Not Given Famotidine (Pepcid) 40 mg PO HS [facility] Last Admin: 03/23/18 21:39 Dose: 40 mg Hydromorphone HCl (Dilaudid) 0.5 mg IVP Q4H PRN PRN Reason: Pain, Mild (1-3) Last Admin: 03/23/18 22:28 Dose: 0.5 mg Sodium Chloride (Sodium Chloride 0.9%) 1,000 mls @ 100 mls/hr IV .Q10H [facility] Last Admin: 03/23/18 10:52 Dose: 100 mls/hr Ceftriaxone Sodium (Rocephin 1 Gram Ivpb) 1 gm in 100 mls @ 100 mls/hr IVPB DAILY [facility] PRN Reason: Protocol Last Admin: 03/24/18 10:55 Dose: 100 mls/hr Ondansetron HCl (Zofran Inj) 4 mg IVP Q4H PRN PRN Reason: Nausea/Vomiting - Labs Labs: 03/24/18 06:00 03/24/18 06:00 - Constitutional Appears: Non-toxic, No Acute Distress - Head Exam Head Exam: ATRAUMATIC, NORMOCEPHALIC - Eye Exam Eye Exam: EOMI, PERRL Pupil Exam: NORMAL ACCOMODATION, PERRL - ENT Exam ENT Exam: Mucous Membranes Moist, Normal External Ear Exam, TM's Normal Bilaterally - Neck Exam Neck Exam: Full ROM, Normal Inspection - Respiratory Exam Respiratory Exam: Clear to Ausculation Bilateral, NORMAL BREATHING PATTERN. absent: Rales, Rhonchi, Wheezes - Cardiovascular Exam Cardiovascular Exam: REGULAR RHYTHM, RRR, +S1, +S2 - GI/Abdominal Exam GI & Abdominal Exam: Soft, Normal Bowel Sounds. absent: Distended, Tenderness Additional comments: right flank pain and tenderness - Extremities Exam Extremities Exam: Full ROM, Normal Inspection - Neurological Exam Neurological Exam: Alert, Awake, CN II-XII Intact, Oriented x3 - Psychiatric Exam Psychiatric exam: Normal Affect, Normal Mood - Skin Skin Exam: Intact, Normal Color Assessment and Plan - Assessment and Plan (Free Text) Assessment: 22 yo female with 2 day history of right flank and abdominal pain with fevers at home. CT shows signs of right sided pyelonephritis. Started on Rocephin which is a good starting point. Cultures taken for analysis. Results pending. Supportive care. UTI. Cultures showing E. coli that was sensitive to most antibiotics. Afebrile today. Right flank pain improving. Can consider use of Keflex 500 mg TID for 12 days more if discharging today. No other medical history at this time. Patient diagnosis of Acute Pyelonephritis, UTI, abdominal pain, and leukocytosis. Thank you for allowing me to participate in the care of the patient, we will follow with you.
--- NOTE | 2018-03-27 08:18 | CON ---
DATE: 03/24/2018 GENITOURINARY CONSULTATION CHIEF COMPLAINT: Right flank pain. HISTORY OF PRESENT ILLNESS: This is a 22-year-old female seen in [facility]. The patient originally presented to an urgent care complaining of a few days of worsening back pain. She did have some dysuria and urinary frequency. Originally, she was told that her labs were normal and that her CT scan was also normal. She was sent home. Her pain continued to worsen. Her pain was in the right flank. She had continued urinary frequency, urgency and mild dysuria, and reports she developed a fever. She denies any nausea or vomiting. She denies any gross hematuria. She presented to the emergency room and was admitted for pyelonephritis. The patient continues to improve on intravenous antibiotics. She is seen in her room. She is awake, alert, in no acute distress. PAST MEDICAL HISTORY: Significant for kidney stones, history of a tonsillectomy, and breast reduction surgery. MEDICATIONS: Currently included Dilaudid, Lovenox, Pepcid, Rocephin, Tylenol and Zofran. ALLERGIES: NO KNOWN DRUG ALLERGIES. FAMILY HISTORY: Noncontributory. SOCIAL HISTORY: No smoking or EtOH use. REVIEW OF SYSTEMS: Twelve-point review of systems was obtained. Positives as per the history of present illness. All other systems are negative. PHYSICAL EXAMINATION: GENERAL: The patient is awake and alert. She is in no acute distress. VITAL SIGNS: She has been afebrile. Temperature was 97.8 when last taken, pulse of 82, BP 145/90, respirations 18. NECK: Supple. There is no thyromegaly or mass noted. CHEST: Revealed a normal inspiratory effort. CARDIAC: Showed positive S1 and S2. There was no peripheral edema. ABDOMEN: The abdomen was soft, nontender, nondistended. There is no hepatosplenomegaly. There is mild right CVA tenderness. There was no suprapubic tenderness. EXTREMITIES: There is no cyanosis or edema. LABORATORY DATA: WBC count was 15.5, which came down to 7.6 on IV antibiotics. GFR has been normal. Her urinalysis showed 25 to 30 rbc, 10 to 15 wbc, and was negative for nitrites. Urine culture grew E. coli. Blood cultures were negative. On radiologic exam, the patient had a CT scan of the abdomen and pelvis, which showed some streakiness around the right kidney with some edema in the right kidney as well. There was also a 7 mm nonobstructing stone in the lower pole of the right kidney. Left kidney was unremarkable. There was noted to be bilateral ovarian cysts with a moderate amount of fluid in the cul-de-sac with a recent cyst rupture. IMPRESSION AND PLAN: This is a 22-year-old female with likely pyelonephritis. The patient has clinically improved on intravenous antibiotics and she has been seen by infectious disease. As her white count has come down and she has remained afebrile, urologically the plan will be for the patient to go home on oral antibiotics as per Infectious Disease. The patient should follow up with me in approximately 4 to 6 weeks in my office to reassess her urine, make sure the infection has cleared, and plan on further imaging of the kidney stone. I would also recommend a gynecological consultation regarding the CT findings, or if patient is going home, she needs a gynecological followup in the near future. Thank you for allowing me to participate in care of this patient. I will follow her with you. Osmin Coley MD
== END 2018-03-24 16:35 | disposition home or self-care (01) | DRG 690 ==
LOC: ED 17:13 → ERH 23:52 → 5RNO 03-22 02:40
PROVIDERS: ADMIT Internal Medicine; ATTEND Internal Medicine
DX: N10 Acute pyelonephritis (principal); B96.20 Unspecified Escherichia coli [E. coli] as the cause of diseases classified elsewhere; N20.0 Calculus of kidney; D50.9 Iron deficiency anemia, unspecified; N83.201 Unspecified ovarian cyst, right side; N83.202 Unspecified ovarian cyst, left side; F51.02 Adjustment insomnia; Z87.442 Personal history of urinary calculi